=== PATIENT | male | born 1950 | race Two or more races ===

== ENCOUNTER 2017-07-28 23:05 | Emergency (ER) | payer MEDICARE, OTHER ==
[~2017-07-28] VITALS: Ht 175.3 cm; Wt 92.1 kg
--- NOTE | 2017-07-28 23:10 | NUR ---
TO BED 7 A 66 YO MALE PATIENT BB [id number] FROM HOME. "CONCERNED ABOUT MY HEADACHE & HIGH BLOOD PRESSURE." UPON ARRIVAL, PATIENT IS WEARING C COLLAR PER PATIENT HE HAD SPINE SURGERY LAST MARCH. PATIENT IS AAOX4, NAD NOTED. BREATHING EVEN AND UNLABORED. PLACED ON CARDIAC AND VS MONITORING. GOWNED. COMFORT MEASURES RENDERED.
[2017-07-28] MEDS ORDERED: OMEG300C3 PO (23:45)
[2017-07-28] MEDS ORDERED: ATOR10TA PO (23:45)
[2017-07-28] MEDS ORDERED: METO-302 PO (23:45)
[2017-07-28] MEDS ORDERED: OXYC-128 PO (23:45)
[2017-07-28] MEDS ORDERED: APIX2.5T PO (23:45)
[2017-07-28] MEDS ORDERED: GABA-532 PO (23:45)
--- NOTE | 2017-07-28 23:46 | NUR ---
PT STATES OXYCODONE 5/325 x1 TAB @20:30 WITH MINIMAL RELIEF.
[2017-07-29] MEDS ORDERED: hydrALAZINE HCL IV 20 MG VIAL IV ONE
[2017-07-29] MEDS ORDERED: MORPHINE SULFATE INJ 2 MG/ML DISP.SYRIN IV ONE
--- NOTE | 2017-07-29 | NUR ---
started a saline lock on the lac g18, blood drawn and sent to lab.
[2017-07-29 00:04] LABS: BASOPHILS % (AUTO) 0.5 % (0.0-2.0); EOSINOPHILS # (AUTO) 0.1 /CMM (0.0-0.7); EOSINOPHILS % (AUTO) 1.3 % (0.0-6.0); HEMATOCRIT 43 % (39-51); HEMOGLOBIN 14.1 g/dL (13.5-17.5); LYMPHOCYTES # (AUTO) 1.5 /CMM (0.8-4.8); LYMPHOCYTES % (AUTO) 18.4 % (20.0-44.0); MEAN CORPUSCULAR HEMOGLOBIN 31 PG (26.0-33.0); MEAN CORPUSCULAR HGB CONC 33 g/dl (31.0-36.0); MEAN CORPUSCULAR VOLUME 94 fL (80-96); MONOCYTES # (AUTO) 0.4 /CMM (0.1-1.30); MONOCYTES % (AUTO) 5.5 % (2.0-12.0); NEUTROPHILS # (AUTO) 5.9 /CMM (1.8-8.9); NEUTROPHILS % (AUTO) 74.3 % (43.0-81.0); PLATELET COUNT (AUTO) 197 /CMM (150-450); RDW COEFFICIENT OF VARIATION 18.8 (11.5-15.0); RED BLOOD CELL COUNT(AUTO) 4.53 MIL/uL (4.5-6.0)
[2017-07-29] MEDS ORDERED: hydrALAZINE HCL IV 20 MG VIAL ONE (00:04)
[2017-07-29] MEDS ORDERED: MORPHINE SULFATE INJ 10 MG/ML DISP.SYRIN ONE (00:04)
[2017-07-29 00:13] LABS: CALCIUM, SERUM 9.1 mg/dL (8.5-10.1); CARBON DIOXIDE 24 mmol/L (21-32); CHLORIDE 105 mmol/L (98-107); CREATININE 1.1 mg/dL (0.6-1.3); GLUCOSE 90 mg/dL (74-106); SODIUM SERUM 139 mmol/L (136-145); UREA NITROGEN, BLOOD 15 mg/dL (7-18)
[2017-07-29 00:19] LABS: ALANINE AMINOTRANSFERASE 29 U/L (12-78); ALBUMIN 4.3 g/dL (3.4-5.0); ALKALINE PHOSPHATASE 70 U/L (46-116); ASPARTATE AMINOTRANSFERASE 18 U/L (15-37); BILIRUBIN,DIRECT 0.2 mg/dL (0.0-0.2); TOTAL PROTEIN, SERUM 7.5 g/dL (6.4-8.2)
--- NOTE | 2017-07-29 00:20 | NUR ---
Back from radiology.
[2017-07-29 00:21] LABS: TROPONIN I < 0.017 ng/mL (0.00-0.056)
--- NOTE | 2017-07-29 00:24 | NUR ---
medicated patient as ordered by Dr Machuca.
[2017-07-29 00:58] LABS: APPEARANCE,URINE CLEAR (CLEAR); BILIRUBIN,URINE NEGATIVE (NEGATIVE); BLOOD, URINE NEGATIVE Ery/uL (NEGATIVE); COLOR,URINE YELLOW (YELLOW); KETONES,URINE NEGATIVE (NEGATIVE); LEUKOCYTE ESTERASE ,URINE NEGATIVE (NEGATIVE); NITRITE, URINE NEGATIVE (NEGATIVE); PROTEIN,URINE TRACE mg/dl (NEGATIVE); UGLUCOSE NEGATIVE (NEGATIVE); UROBILINOGEN,URINE 0.2 EU/dL (0.2)
[2017-07-29 01:08] LABS: RBC,URINE 0-2 /HPF (0-2); WBC,URINE 0-2 /HPF (0-3)
[2017-07-29 01:09] LABS: BACTERIA,URINE Rare /HPF (None Seen); SQUAMOUS EPITHELIAL CELL,UR Rare /HPF (None Seen)
--- NOTE | 2017-07-29 01:27 | NUR ---
IV removed. Catheter intact and site benign. Pressure and 4x4 applied to site. No bleeding noted. Patient discharged to home in stable condition. Written and verbal after care instructions given. Patient verbalizes understanding of instruction. Patient is ambulatory with steady gait, no further complaints.
[2017-07-29 01:28] VITALS: BP 120/70
== END 2017-07-29 01:28 | disposition home or self-care (01) ==
LOC: ER 23:07
DX: I16.0 Hypertensive urgency (principal); I10 Essential (primary) hypertension; E78.5 Hyperlipidemia, unspecified; Z86.73 Personal history of transient ischemic attack (TIA), and cerebral infarction without residual deficits; Z95.0 Presence of cardiac pacemaker; Z88.2 Allergy status to sulfonamides; Z79.01 Long term (current) use of anticoagulants
CPT/HCPCS: 36415; 70450; 80048; 80076; 81001; 84484; 85025; 93005; 96374; 96375; 99285; A4606; J0360; J2270; 81000-TC; Z7610

== ENCOUNTER 2017-08-16 05:57 | Emergency (ER) | payer MEDICARE, OTHER ==
[~2017-08-16] VITALS: Ht 172.7 cm; Wt 72.6 kg
[~2017-08-16 05:57] MED LIST: APIX2.5T PO; ATOR10TA PO; GABA-532 PO; METO-302 PO; OMEG300C3 PO; OXYC-128 PO
--- NOTE | 2017-08-16 06:00 | NUR ---
PT BIB RA TO ER BED 6, C/O HEADACHE STATING HIS B/P IS "TOO HIGH" X 12 HOURS. PT PLACED ON BROTH MIXER. PT VSS/RESP EVEN UNLABORED/NAD NOTED/SKIN WARM AND DRY/DENIES N-V-D/AOX4. AWAITING MD SORENSEN.
--- NOTE | 2017-08-16 06:15 | NUR ---
PT STATES HIS HEAD NO LONGER HURTS, RATED PAIN A 0 ON PAIN SCALE.
[2017-08-16 07:25] VITALS: BP 121/71
--- NOTE | 2017-08-16 07:25 | NUR ---
REPORT GIVEN TO PAMELA MIGUEL FOR GLENYS. PT VSS.
--- NOTE | 2017-08-16 07:29 | NUR ---
PT BACK FROM CT SCAN
== END 2017-08-16 08:57 | disposition home or self-care (01) ==
LOC: ER 06:03
DX: I10 Essential (primary) hypertension (principal); R51 Headache; E78.5 Hyperlipidemia, unspecified; Z79.01 Long term (current) use of anticoagulants; Z86.73 Personal history of transient ischemic attack (TIA), and cerebral infarction without residual deficits; Z88.2 Allergy status to sulfonamides; Z95.0 Presence of cardiac pacemaker
CPT/HCPCS: 70450; 99284; A4606; Z7610

== ENCOUNTER 2017-08-18 15:33 | Inpatient (IN) | payer MEDICARE, OTHER ==
[~2017-08-18] VITALS: Ht 182.9 cm; Wt 90.7 kg
--- NOTE | 2017-08-18 16:00 | NUR ---
PRESENTS TO ER C/O HEADACHE- PT POINTING TO BACK OF HIS HEAD, X 2 DAYS. NO N/V. STATES " I THINK MY BLOOD PRESSURE IS HIGH". A/OX 4. BREATHING EVEN AND UNLABORED. NO SOB. NO NEURO DEFICITS. VITALS STABLE. SAFETY AND COMFORT MEASURES IN PLACE. AWAITING MD ORDERS.
[2017-08-18] MEDS ORDERED: METOCLOPRAMIDE HCL 10 MG/2 ML VIAL IV ONE (16:30)
[2017-08-18] MEDS ORDERED: ACETAMINOPHEN ES 500 MG TABLET PO ONE (16:30)
[2017-08-18] MEDS ORDERED: IV NS 0.9% 1,000 ML BAG IV ONE (16:30)
[2017-08-18] MEDS ORDERED: KETOROLAC TROMETHAMINE INJ 30 MG/ML VIAL IV ONE (16:30)
--- NOTE | 2017-08-18 16:30 | NUR ---
NEW IV STARTED ON LAC, 18 G. BLOOD DRAWN AND SENT TO LAB.
[2017-08-18] MEDS ORDERED: METOCLOPRAMIDE HCL 10 MG/2 ML VIAL ONE (16:35)
[2017-08-18] MEDS ORDERED: KETOROLAC TROMETHAMINE INJ 30 MG/ML VIAL ONE (16:35)
[2017-08-18] MEDS ORDERED: ACETAMINOPHEN ES 500 MG TABLET ONE (16:35)
--- NOTE | 2017-08-18 16:45 | NUR ---
PATIENT MEDICATED PER MD ORDERS.
--- NOTE | 2017-08-18 16:56 | NUR ---
PATIENT TAKEN TO CT VIA STRETCHER.
[2017-08-18] MEDS ORDERED: ATOR40TA PO (16:57)
[2017-08-18] MEDS ORDERED: GABA-534 PO (16:57)
[2017-08-18] MEDS ORDERED: OMEG-72 PO (16:57)
[2017-08-18] MEDS ORDERED: APIX5TAB PO (16:57)
[2017-08-18] MEDS ORDERED: FLEC100T2 PO (16:57)
[2017-08-18 17:06] LABS: BASOPHILS % (AUTO) 0.4 % (0.0-2.0); EOSINOPHILS # (AUTO) 0.1 /CMM (0.0-0.7); EOSINOPHILS % (AUTO) 1.3 % (0.0-6.0); HEMATOCRIT 43 % (39-51); HEMOGLOBIN 14.2 g/dL (13.5-17.5); LYMPHOCYTES # (AUTO) 1.2 /CMM (0.8-4.8); LYMPHOCYTES % (AUTO) 15.4 % (20.0-44.0); MEAN CORPUSCULAR HEMOGLOBIN 31 PG (26.0-33.0); MEAN CORPUSCULAR HGB CONC 33 g/dl (31.0-36.0); MEAN CORPUSCULAR VOLUME 93 fL (80-96); MONOCYTES # (AUTO) 0.5 /CMM (0.1-1.30); MONOCYTES % (AUTO) 6.7 % (2.0-12.0); NEUTROPHILS % (AUTO) 76.2 % (43.0-81.0); PLATELET COUNT (AUTO) 214 /CMM (150-450); RDW COEFFICIENT OF VARIATION 19.9 (11.5-15.0); RED BLOOD CELL COUNT(AUTO) 4.61 MIL/uL (4.5-6.0); WHITE BLOOD COUNT (AUTO) 7.8 K/uL (4.3-11.0)
--- NOTE | 2017-08-18 17:08 | NUR ---
PATIENT RETURNED FROM CT IN STABLE CONDITION.
[2017-08-18 17:11] LABS: CALCIUM, SERUM 9.4 mg/dL (8.5-10.1); CARBON DIOXIDE 27 mmol/L (21-32); CHLORIDE 107 mmol/L (98-107); GLUCOSE 101 mg/dL (74-106); SODIUM SERUM 140 mmol/L (136-145); UREA NITROGEN, BLOOD 18 mg/dL (7-18)
[2017-08-18 17:13] LABS: INR 1.08 (0.87-1.13); PROTHROMBIN TIME 11.2 SECS (9.5-12.7)
[2017-08-18 17:21] LABS: ALANINE AMINOTRANSFERASE 33 U/L (12-78); ALBUMIN 4.2 g/dL (3.4-5.0); ALKALINE PHOSPHATASE 69 U/L (46-116); ASPARTATE AMINOTRANSFERASE 17 U/L (15-37); BILIRUBIN,DIRECT 0.2 mg/dL (0.0-0.2); BILIRUBIN,TOTAL 1.5 mg/dL (0.2-1.0); TOTAL PROTEIN, SERUM 7.4 g/dL (6.4-8.2)
[2017-08-18 17:27] LABS: TROPONIN I < 0.017 ng/mL (0.00-0.056)
--- NOTE | 2017-08-18 17:39 | NUR ---
PAGED DR VILLAVICENCIO
--- NOTE | 2017-08-18 17:51 | NUR ---
PATIENT ASSIGNED TO TELE 310-1
--- NOTE | 2017-08-18 17:59 | NUR ---
REPORT GIVEN TO LYNN SANTIAGO FOR GLENYS UPON ADMISSION.
[2017-08-18] MEDS ORDERED: HYDROCODONE/APAP 5/325MG 1 EACH TABLET ONE (18:28)
[2017-08-18] MEDS ORDERED: HYDROCODONE/APAP 5/325MG 1 EACH TABLET PO ONE (18:30)
--- NOTE | 2017-08-18 19:02 | NUR ---
RECEIVED REPORT FROM PAMELA HOU PT APPEARS COMFORTABLE.
--- NOTE | 2017-08-18 19:03 | NUR ---
DR. FRANCO AT BEDSIDE FOR EVAL.
--- NOTE | 2017-08-18 19:35 | NUR ---
PT TRANSFERRED TO TELE BED 310 PER ACLS PROTOCOL.
[2017-08-18 20:00] VITALS: BP 121/55
[2017-08-18] MEDS ORDERED: ONDANSETRON HCL/PF 4 MG/2 ML VIAL IVP PRN (20:00)
[2017-08-18] MEDS ORDERED: HYDROMORPHONE 1 MG/1 ML DISP.SYRIN IV PRN (20:00)
[2017-08-18] MEDS ORDERED: ACETAMINOPHEN 325 MG TABLET PO PRN (20:00)
[2017-08-18] MEDS ORDERED: Z GUARD REMEDY 2 OZ OINT TP PRN (20:00)
[2017-08-18] MEDS ORDERED: MAG HYDROX/AL HYDROX/SIMETH 30 ML UDC PO PRN (20:00)
[2017-08-18] MEDS ORDERED: MAGNESIUM HYDROXIDE 30 ML UDC PO PRN (20:00)
[2017-08-18] MEDS ORDERED: ZOLPIDEM TARTRATE 5 MG TABLET PO PRN (20:00)
--- NOTE | 2017-08-18 20:30 | NUR ---
RN OPENING NOTES RECEIVED PATIENT FROM ER IN STABLE CONDITION, ALERT AND ORIENTED X4. VS STABLE, AMBULATORY. RESPIRATIONS EVEN AND UNLABORED. NO SOB NOTED. PATIENT C/O HEADACHE 03/30. TELE MONITOR IS IN PLACE, SINUS RHYTHM 64 BPM. BS X4. IV ACCESS ON LEFT AC #18 PATENT AND INTACT, FLUSHING WELL WITH NS. AWATING FOR MD ORDERS. BED IN LOW AND LOCKED POSITION. SIDE RAILSX2. CALL LIGHT WITHIN EASY REACH. WILL CONTINUE TO MONITOR AND ASSESS DURING THE SHIFT.
[2017-08-18 21:00] VITALS: BP 121/55
[2017-08-18] MEDS: oxyCODONE/APAP (5/325 MG) 1 UDTAB TABLET PO PRN (21:03)
--- NOTE | 2017-08-18 21:05 | NUR ---
RN NOTES PATIENT C/O PAIN 03/30. ADMINISTERED PERCOCET 5/325 MG. CONTINUE TO MONITOR.
[2017-08-18] MEDS: IV NS 0.9% 1,000 ML IV PRN (21:06)
[2017-08-18] MEDS: ATORVASTATIN 40 MG TABLET PO SCH (21:14)
[2017-08-19] VITALS: BP 132/71
[2017-08-19 04:00] VITALS: BP_SYST 120; BP_SYST 131; BP_SYST 158; BP_DIAS 62; BP_DIAS 70; BP_DIAS 74
--- NOTE | 2017-08-19 06:52 | NUR ---
RN CLOSING NOTES PATIENT IS SLEEPING IN BED, EASY TO AROUSE. VS STABLE. RESPIRATIONS EVEN AND UNLABORED. NO SOB NOTED. TELE MONITOR IS IN PLACE, SINUS RHYTHM 65 BPM. IV ACCESS ON LEFT AC #18 PATENT AND INTACT, INFUSING NS AT 75 ML/HR. NO REDNESS OR INFILTRATION NOTED. ALL MEDICATIONS GIVEN PER MD ORDER. BED IN LOW AND LOCKED POSITION. SIDE RAILSX2. CALL LIGHT WITHIN EASY REACH. WILL ENDORSE TO RN DAY SHIFT FOR CONTINUITY OF CARE.
[2017-08-19 07:09] LABS: BASOPHILS # (AUTO) 0.1 /CMM (0.0-0.2); BASOPHILS % (AUTO) 0.7 % (0.0-2.0); EOSINOPHILS # (AUTO) 0.1 /CMM (0.0-0.7); EOSINOPHILS % (AUTO) 1.6 % (0.0-6.0); HEMATOCRIT 41 % (39-51); HEMOGLOBIN 13.4 g/dL (13.5-17.5); LYMPHOCYTES # (AUTO) 1.7 /CMM (0.8-4.8); LYMPHOCYTES % (AUTO) 23.9 % (20.0-44.0); MEAN CORPUSCULAR HEMOGLOBIN 31 PG (26.0-33.0); MEAN CORPUSCULAR HGB CONC 33 g/dl (31.0-36.0); MEAN CORPUSCULAR VOLUME 95 fL (80-96); MONOCYTES # (AUTO) 0.5 /CMM (0.1-1.30); MONOCYTES % (AUTO) 6.4 % (2.0-12.0); NEUTROPHILS # (AUTO) 4.9 /CMM (1.8-8.9); NEUTROPHILS % (AUTO) 67.4 % (43.0-81.0); PLATELET COUNT (AUTO) 183 /CMM (150-450); RDW COEFFICIENT OF VARIATION 19.3 (11.5-15.0); RED BLOOD CELL COUNT(AUTO) 4.27 MIL/uL (4.5-6.0); WHITE BLOOD COUNT (AUTO) 7.3 K/uL (4.3-11.0)
[2017-08-19 07:24] LABS: ALBUMIN 3.5 g/dL (3.4-5.0); BILIRUBIN,TOTAL 1.5 mg/dL (0.2-1.0); CALCIUM, SERUM 8.6 mg/dL (8.5-10.1); MAGNESIUM 1.9 mg/dL (1.8-2.4); POTASSIUM 3.9 mmol/L (3.5-5.1); TOTAL PROTEIN, SERUM 6.3 g/dL (6.4-8.2)
[2017-08-19 08:00] VITALS: BP 126/70
--- NOTE | 2017-08-19 08:00 | NUR ---
MS RN AM NOTES PATIENT IS EASY TO AROUSE. RESPIRATIONS EVEN AND UNLABORED. NO SOB NOTED. TELE MONITOR IS IN PLACE WITH SINUS RHYTHM 70 BPM. IV ACCESS ON LEFT AC #18 PATENT AND INTACT, INFUSING NS AT 75 ML/HR. NO REDNESS OR INFILTRATION NOTED. ATE 75%BREAKFAST.WITH BRP.ALL MEDICATIONS GIVEN PER MD ORDER. BED IN LOW AND LOCKED POSITION. SIDE RAILSX2. CALL LIGHT WITHIN EASY REACH.
[2017-08-19] MEDS ORDERED: Medication Not On Formulary EA (Omega-3 Acid Ethyl Esters 1 GM) PO SCH (09:00)
[2017-08-19] MEDS: FLECAINIDE ACETATE (100 MG) 100 MG TABLET PO SCH ×2 (09:27→17:50)
[2017-08-19] MEDS: METOPROLOL SUCCINATE 25 MG TAB.SR.24H PO SCH (09:27)
[2017-08-19] MEDS: GABAPENTIN 300 MG CAPSULE PO SCH ×3 (09:27→17:50)
[2017-08-19] MEDS: APIXABAN 5 MG TABLET PO SCH ×2 (09:27→17:51)
[2017-08-19] MEDS: IV NS 0.9% 1,000 ML IV PRN (10:44)
--- NOTE | 2017-08-19 11:00 | NUR ---
PT IS ALERT AND ORIENTED AND STROKE TEACHING AND PACKET GIVEN.PT AMBULATES AD LIZBET WITH BRP WITH SLOW,STEADY GAIT.NO FACIAL DROOPING,NO ARM WEAKNESS,SPEECH IS CLEAR.FOR PT,OT AND ST SORENSEN.
[2017-08-19] MEDS ORDERED: IOHEXOL-300 100 ML VIAL IV ONE (11:49)
[2017-08-19] MEDS ORDERED: IV NS 0.9% 250 ML IV ONE (11:49)
[2017-08-19 16:00] VITALS: BP 131/78
--- NOTE | 2017-08-19 19:30 | NUR ---
AUTO PARTS DELIVERY DRIVER/NOTES RECEIVED PT IN STABLE CONDITION. RESTING IN BED. AA&OX4. RA. NSR. L AC IV #18G WITH NS @ 75ML/HR INFUSING WELL, SITE CDI. C/O R SHOULDER PRESSURE PAIN, LEVEL 5/10. DECLINE TO HAVE PAIN MEDICATION AT THIS TIME. ALSO C/O OF GENERALIZED WEAKNESS. NO FACIAL DROOP, STRONG HAND CLERICAL COORDINATOR ANDERS. AND NO WEAKNESS TO LOWER EXTREMITY. NO C/O FONTENOT, N/V. FEELS DIZZY ONLY WHEN GETTING UP. REFUSED BED ALARM. MADE AWARE OF PLAN OF CARE AND TO USE CALL TORO ESPECIALLY WHEN GETTING OOB AND VERBALIZE UNDERSTANDING. BED AT LOWEST POSITION, BED LOCKED, SIDE RAILS X 3 UP, ROOM NEAR NURSING STATION. SIDE TABLE, CALL TORO AND URINAL WITHIN REACH. WILL CONTINUE TO MONITOR.
[2017-08-19 20:00] VITALS: BP_SYST 107; BP_DIAS 57; BP_DIAS 72
[2017-08-19] MEDS: ATORVASTATIN 40 MG TABLET PO SCH (21:35)
[2017-08-20] VITALS: BP_SYST 135; BP_SYST 140; BP_SYST 142; BP_DIAS 77; BP_DIAS 80
[2017-08-20 04:00] VITALS: BP 131/70
[2017-08-20 06:42] LABS: BASOPHILS % (AUTO) 0.5 % (0.0-2.0); EOSINOPHILS # (AUTO) 0.1 /CMM (0.0-0.7); EOSINOPHILS % (AUTO) 1.4 % (0.0-6.0); HEMATOCRIT 42 % (39-51); HEMOGLOBIN 13.6 g/dL (13.5-17.5); LYMPHOCYTES # (AUTO) 1.5 /CMM (0.8-4.8); LYMPHOCYTES % (AUTO) 18.4 % (20.0-44.0); MEAN CORPUSCULAR HEMOGLOBIN 31 PG (26.0-33.0); MEAN CORPUSCULAR HGB CONC 33 g/dl (31.0-36.0); MEAN CORPUSCULAR VOLUME 95 fL (80-96); MONOCYTES # (AUTO) 0.4 /CMM (0.1-1.30); MONOCYTES % (AUTO) 5.3 % (2.0-12.0); NEUTROPHILS # (AUTO) 6.1 /CMM (1.8-8.9); NEUTROPHILS % (AUTO) 74.4 % (43.0-81.0); PLATELET COUNT (AUTO) 189 /CMM (150-450); RED BLOOD CELL COUNT(AUTO) 4.38 MIL/uL (4.5-6.0); WHITE BLOOD COUNT (AUTO) 8.3 K/uL (4.3-11.0)
--- NOTE | 2017-08-20 07:00 | NUR ---
TELE/RN NOTES NO SIGNIFICANT CHANGES. STABLE. OX4. NSR. NO DISTRESS NOTED. INTERMITTENTLY SLEPT LAST NIGHT WITH NO COMPLAINTS. VOIDING WELL. ALL NEEDS MET. BED AT LOWEST POSITION AND LOCKED. SR X3 UP, BED ALARM ON. SIDE TABLE AND CALL TORO WITHIN REACH. WILL ENDORSE TO AM SHIFT FOR CONTINUITY OF CARE.
[2017-08-20] MEDS: IV NS 0.9% 1,000 ML IV PRN (07:03)
[2017-08-20 07:10] LABS: ALBUMIN 3.7 g/dL (3.4-5.0); BILIRUBIN,TOTAL 1.4 mg/dL (0.2-1.0); CALCIUM, SERUM 8.6 mg/dL (8.5-10.1); CREATININE 0.9 mg/dL (0.6-1.3); POTASSIUM 3.9 mmol/L (3.5-5.1); TOTAL PROTEIN, SERUM 6.6 g/dL (6.4-8.2)
[2017-08-20 08:00] VITALS: BP 123/71
--- NOTE | 2017-08-20 08:00 | NUR ---
LAND MEASURER AM NOTES PATIENT ALERT AND AWAKE. RESPIRATIONS EVEN AND UNLABORED. NO SOB NOTED. TELE MONITOR IS IN PLACE WITH SINUS RHYTHM 70 BPM. IV ACCESS ON LEFT AC #18 PATENT AND INTACT, INFUSING NS AT 75 ML/HR. NO REDNESS OR INFILTRATION NOTED. ATE 75%BREAKFAST.WITH BRP.ALL MEDICATIONS GIVEN PER MD ORDER. BED IN LOW AND LOCKED POSITION. SIDE RAILSX2. CALL LIGHT WITHIN EASY REACH.
[2017-08-20] MEDS: GABAPENTIN 300 MG CAPSULE PO SCH ×2 (08:53→12:28)
[2017-08-20] MEDS: FLECAINIDE ACETATE (100 MG) 100 MG TABLET PO SCH (08:53)
[2017-08-20 08:54] VITALS: BP 123/71
[2017-08-20] MEDS: METOPROLOL SUCCINATE 25 MG TAB.SR.24H PO SCH (08:54)
[2017-08-20] MEDS: APIXABAN 5 MG TABLET PO SCH (08:56)
[2017-08-20] MEDS: oxyCODONE/APAP (5/325 MG) 1 UDTAB TABLET PO PRN (10:40)
--- NOTE | 2017-08-20 15:45 | NUR ---
DISCHARGE INSTRUCTIONS,MED RECONCILIATION,PRESCRIPTIONS GIVEN TO THE PT.DISCHARGED PT HOME VIA TAXI VOUCHER WITH STABLE V/S.DENIES PAIN OR DISTRESS.
== END 2017-08-20 15:45 | disposition home or self-care (01) | DRG 305 ==
LOC: ER 15:35 → TELE 19:09 → MED 08-20 07:53
PROVIDERS: ADMIT Family Medicine; ATTEND Family Medicine
DX: I10 Essential (primary) hypertension (principal); G93.89 Other specified disorders of brain; I48.91 Unspecified atrial fibrillation; R17 Unspecified jaundice; R51 Headache; E78.5 Hyperlipidemia, unspecified; F17.210 Nicotine dependence, cigarettes, uncomplicated; E80.6 Other disorders of bilirubin metabolism; Z86.73 Personal history of transient ischemic attack (TIA), and cerebral infarction without residual deficits; Z96.641 Presence of right artificial hip joint; Z79.899 Other long term (current) drug therapy; Z79.01 Long term (current) use of anticoagulants; Z95.0 Presence of cardiac pacemaker; Z88.2 Allergy status to sulfonamides; R53.1 Weakness; R04.0 Epistaxis; G89.29 Other chronic pain; I67.2 Cerebral atherosclerosis
CPT/HCPCS: 36415; 70450-TC; 70491-TC; 80048-TC; 80053-TC; 80061-TC; 80076-TC; 83735-TC; 84100-TC; 84484-TC; 85025-TC; 85730-TC; 87081-TC; A4606; J1885; J2765; J7030; J7050; Q9967; Z7610

== ENCOUNTER 2017-09-04 06:33 | Emergency (ER) | payer MEDICARE, OTHER ==
[~2017-09-04] VITALS: Ht 175.3 cm; Wt 93.4 kg
[~2017-09-04 06:33] MED LIST changes: -APIX2.5T PO; +APIX5TAB PO; -ATOR10TA PO; +ATOR40TA PO; +FLEC100T2 PO; -GABA-532 PO; +GABA-534 PO; +OMEG-72 PO; -OMEG300C3 PO
--- NOTE | 2017-09-04 06:35 | NUR ---
TO BED 4 BIB PARAMEDICS C/O CHEST PAIN X1 DAY, WORSE UPON PALPATION. PT AAOX4 NO ACUTE DISTRESS NOTED, RESP EVEN AND UNLABORED. PLACE PT ON CARDIAC MONITORING, CONTINUOUS POX. PENDING ER MD SORENSEN.
[2017-09-04] MEDS ORDERED: NITROGLYCERIN 0.4 MG/TAB BOTTLE SL ONE (07:00)
--- NOTE | 2017-09-04 07:07 | NUR ---
BLOOD DRAWN BY ASSOCIATE DIRECTOR OF DEVELOPMENT.
[2017-09-04] MEDS ORDERED: NITROGLYCERIN 0.4 MG/TAB BOTTLE ONE (07:08)
[2017-09-04 07:18] LABS: BASOPHILS % (AUTO) 0.6 % (0.0-2.0); EOSINOPHILS # (AUTO) 0.1 /CMM (0.0-0.7); EOSINOPHILS % (AUTO) 1.7 % (0.0-6.0); HEMATOCRIT 38 % (39-51); HEMOGLOBIN 12.8 g/dL (13.5-17.5); LYMPHOCYTES # (AUTO) 1.5 /CMM (0.8-4.8); LYMPHOCYTES % (AUTO) 20.5 % (20.0-44.0); MEAN CORPUSCULAR HEMOGLOBIN 31 PG (26.0-33.0); MEAN CORPUSCULAR HGB CONC 34 g/dl (31.0-36.0); MEAN CORPUSCULAR VOLUME 93 fL (80-96); MONOCYTES # (AUTO) 0.4 /CMM (0.1-1.30); NEUTROPHILS % (AUTO) 71.2 % (43.0-81.0); PLATELET COUNT (AUTO) 191 /CMM (150-450); RDW COEFFICIENT OF VARIATION 18.5 (11.5-15.0); WHITE BLOOD COUNT (AUTO) 7.1 K/uL (4.3-11.0)
[2017-09-04 07:28] LABS: CARBON DIOXIDE 28 mmol/L (21-32); CHLORIDE 108 mmol/L (98-107); CREATININE 1.2 mg/dL (0.6-1.3); GLUCOSE 132 mg/dL (74-106); POTASSIUM 3.7 mmol/L (3.5-5.1); SODIUM SERUM 144 mmol/L (136-145); UREA NITROGEN, BLOOD 15 mg/dL (7-18)
[2017-09-04 07:35] LABS: INR 1.1 (0.87-1.13); PROTHROMBIN TIME 11.4 SECS (9.5-12.7)
[2017-09-04 07:36] LABS: TROPONIN I < 0.017 ng/mL (0.00-0.056)
--- NOTE | 2017-09-04 07:40 | NUR ---
XRAY IN PROGRESS AT BS.
[2017-09-04 07:50] VITALS: BP 124/65
--- NOTE | 2017-09-04 08:00 | NUR ---
IV removed. Catheter intact and site benign. Pressure and 4x4 applied to site. No bleeding noted.Patient discharged to home in stable condition. Written and verbal after care instructions given. Patient verbalizes understanding of instruction.
== END 2017-09-04 08:06 | disposition home or self-care (01) ==
LOC: ER 06:34
DX: R07.9 Chest pain, unspecified (principal); F41.9 Anxiety disorder, unspecified; I49.9 Cardiac arrhythmia, unspecified; I10 Essential (primary) hypertension; Z88.2 Allergy status to sulfonamides; Z86.73 Personal history of transient ischemic attack (TIA), and cerebral infarction without residual deficits; Z79.01 Long term (current) use of anticoagulants
CPT/HCPCS: 36415; 71010; 80048; 84484; 85025; 85730; 93005; 99285; A4606; Z7610

== ENCOUNTER 2017-11-20 04:40 | Emergency (ER) | payer MEDICARE, OTHER ==
[~2017-11-20] VITALS: Ht 172.7 cm; Wt 77.1 kg
[~2017-11-20 04:40] MED LIST changes: -METO-302 PO; +METO-356 PO
--- NOTE | 2017-11-20 04:42 | NUR ---
PT WADE FROM HOME TO ER BED . PT [id number] WOKE UP 1 HOUR AGO C/O SOB AND CHEST PALPITATION. HX OF ARRYTHMIA. GOWNED AND PLACED ON MONITOR. SATTING 98% ON RA.DENIES ANY CHEST PAIN AT THIS TIME. AWAITING MD SORENSEN.
--- NOTE | 2017-11-20 04:51 | NUR ---
DR FRENCH AT BEDSIDE FOR EVAL.
--- NOTE | 2017-11-20 04:59 | NUR ---
RESIDENCE DIRECTOR AT BEDSIDE FOR BLOOD DRAW.
--- NOTE | 2017-11-20 05:04 | NUR ---
RADIOLOGY AT BEDSIDE FOR CHEST XRAY.
[2017-11-20 05:24] LABS: APPEARANCE,URINE CLEAR (CLEAR); BILIRUBIN,URINE NEGATIVE (NEGATIVE); BLOOD, URINE NEGATIVE Ery/uL (NEGATIVE); COLOR,URINE YELLOW (YELLOW); KETONES,URINE NEGATIVE (NEGATIVE); LEUKOCYTE ESTERASE ,URINE NEGATIVE (NEGATIVE); NITRITE, URINE NEGATIVE (NEGATIVE); PROTEIN,URINE 2+ mg/dl (NEGATIVE); UGLUCOSE NEGATIVE (NEGATIVE); UROBILINOGEN,URINE 0.2 EU/dL (0.2)
[2017-11-20 05:24] LABS: BASOPHILS % (AUTO) 0.5 % (0.0-2.0); EOSINOPHILS # (AUTO) 0.1 /CMM (0.0-0.7); EOSINOPHILS % (AUTO) 1.4 % (0.0-6.0); HEMATOCRIT 45 % (39-51); HEMOGLOBIN 15.1 g/dL (13.5-17.5); LYMPHOCYTES # (AUTO) 1.6 /CMM (0.8-4.8); LYMPHOCYTES % (AUTO) 21.3 % (20.0-44.0); MEAN CORPUSCULAR HEMOGLOBIN 32 PG (26.0-33.0); MEAN CORPUSCULAR HGB CONC 34 g/dl (31.0-36.0); MEAN CORPUSCULAR VOLUME 94 fL (80-96); MONOCYTES # (AUTO) 0.5 /CMM (0.1-1.30); MONOCYTES % (AUTO) 6.9 % (2.0-12.0); NEUTROPHILS # (AUTO) 5.3 /CMM (1.8-8.9); NEUTROPHILS % (AUTO) 69.9 % (43.0-81.0); PLATELET COUNT (AUTO) 187 /CMM (150-450); RDW COEFFICIENT OF VARIATION 19.8 (11.5-15.0); RED BLOOD CELL COUNT(AUTO) 4.78 MIL/uL (4.5-6.0); WHITE BLOOD COUNT (AUTO) 7.6 K/uL (4.3-11.0)
[2017-11-20 05:27] LABS: BACTERIA,URINE None seen /HPF (None Seen); RBC,URINE NONE SEEN /HPF (0-2); SQUAMOUS EPITHELIAL CELL,UR Few /HPF (None Seen); WBC,URINE 0-2 /HPF (0-3)
[2017-11-20 05:28] LABS: CARBON DIOXIDE 24 mmol/L (21-32); CHLORIDE 106 mmol/L (98-107); CREATININE 0.9 mg/dL (0.6-1.3); GLUCOSE 104 mg/dL (74-106); SODIUM SERUM 142 mmol/L (136-145); UREA NITROGEN, BLOOD 17 mg/dL (7-18)
[2017-11-20 05:36] LABS: TROPONIN I < 0.017 ng/mL (0.00-0.056)
[2017-11-20 05:40] LABS: INR 1.03 (0.87-1.13)
[2017-11-20 05:42] LABS: ALANINE AMINOTRANSFERASE 32 U/L (12-78); ALBUMIN 4.1 g/dL (3.4-5.0); ALKALINE PHOSPHATASE 72 U/L (46-116); ASPARTATE AMINOTRANSFERASE 23 U/L (15-37); B-TYPE NATRIURETIC PEPTIDE 350 PG/ML (0-125); BILIRUBIN,DIRECT 0.2 mg/dL (0.0-0.2); BILIRUBIN,TOTAL 0.9 mg/dL (0.2-1.0); TOTAL PROTEIN, SERUM 7.6 g/dL (6.4-8.2)
[2017-11-20] MEDS ORDERED: FUROSEMIDE 40 MG/4 ML VIAL IV ONE (06:00)
[2017-11-20] MEDS ORDERED: FUROSEMIDE 40 MG/4 ML VIAL ONE (06:01)
[2017-11-20 06:12] VITALS: BP 138/84
--- NOTE | 2017-11-20 06:12 | NUR ---
Patient discharged to home in stable condition. Written and verbal after care instructions given. Patient verbalizes understanding of instruction.IV removed. Catheter intact and site benign. Pressure and 4x4 applied to site. No bleeding noted.
== END 2017-11-20 06:13 | disposition home or self-care (01) ==
LOC: ER 04:42
DX: I11.0 Hypertensive heart disease with heart failure (principal); I50.9 Heart failure, unspecified; Z79.01 Long term (current) use of anticoagulants; Z86.73 Personal history of transient ischemic attack (TIA), and cerebral infarction without residual deficits; Z88.2 Allergy status to sulfonamides; Z95.0 Presence of cardiac pacemaker
CPT/HCPCS: 36415; 71045; 80048; 80076; 81001; 83605; 83880; 84484; 85025; 85730; 87040 ×2; 87086; 93005; 96374; 99285; A4606; J1940; 81000-TC; Z7610

== ENCOUNTER 2017-11-29 18:57 | Emergency (ER) | payer MEDICARE, OTHER ==
[~2017-11-29] VITALS: Ht 167.6 cm; Wt 74.8 kg
--- NOTE | 2017-11-29 19:30 | NUR ---
67 YO MALE BB SELF. PATIENT IS ALERT AND ORIENTED X 3, C/O PALPITATIONS/ FAST HEART RATE. PATIENT DENIES CP/ SOB/ N/V. PATIENT AMBULATED TO ER BED, SKIN WARM AND DRY, RESP EVEN AND UNLABORED. PATIENT GOWNED,PLACED ON CARIDAC MONITOR. 18G RIGHT AC IV STARTED, BLOOD SAMPLE OBTAINED AND SENT TO LAB. WILL CONTINUE TO MONITOR
--- NOTE | 2017-11-29 19:37 | NUR ---
BRENNEN GALINDO AT BED SIDE
[2017-11-29] MEDS ORDERED: DIGOXIN INJ 0.5 MG/2 ML AMPUL ONE (19:45)
[2017-11-29] MEDS ORDERED: ASPIRIN 81 MG TAB.CHEW ONE (19:45)
[2017-11-29] MEDS ORDERED: DILTIAZEM HCL 25 MG IV ONE (19:46)
[2017-11-29 19:49] LABS: BASOPHILS # (AUTO) 0.1 /CMM (0.0-0.2); BASOPHILS % (AUTO) 1.6 % (0.0-2.0); EOSINOPHILS # (AUTO) 0.1 /CMM (0.0-0.7); EOSINOPHILS % (AUTO) 0.9 % (0.0-6.0); HEMATOCRIT 47 % (39-51); HEMOGLOBIN 16.5 g/dL (13.5-17.5); LYMPHOCYTES # (AUTO) 1.7 /CMM (0.8-4.8); LYMPHOCYTES % (AUTO) 19.8 % (20.0-44.0); MEAN CORPUSCULAR HEMOGLOBIN 32 PG (26.0-33.0); MEAN CORPUSCULAR HGB CONC 35 g/dl (31.0-36.0); MEAN CORPUSCULAR VOLUME 92 fL (80-96); MONOCYTES # (AUTO) 0.6 /CMM (0.1-1.30); MONOCYTES % (AUTO) 6.8 % (2.0-12.0); NEUTROPHILS # (AUTO) 5.9 /CMM (1.8-8.9); NEUTROPHILS % (AUTO) 70.9 % (43.0-81.0); PLATELET COUNT (AUTO) 221 /CMM (150-450); RDW COEFFICIENT OF VARIATION 18.9 (11.5-15.0); RED BLOOD CELL COUNT(AUTO) 5.14 MIL/uL (4.5-6.0); WHITE BLOOD COUNT (AUTO) 8.4 K/uL (4.3-11.0)
--- NOTE | 2017-11-29 19:57 | NUR ---
MEDICATED PT ORDERED
[2017-11-29] MEDS ORDERED: DILTIAZEM HCL 25 MG IV IV ONE (20:00)
[2017-11-29] MEDS ORDERED: IV NS 0.9% 500 ML BAG IV ONE (20:00)
[2017-11-29] MEDS ORDERED: DIGOXIN INJ 0.5 MG/2 ML AMPUL IV ONE (20:00)
[2017-11-29] MEDS ORDERED: ASPIRIN 81 MG TAB.CHEW PO ONE (20:00)
--- NOTE | 2017-11-29 20:03 | NUR ---
NOTED EKG CHANGES IN ON 3 LEAD. PRINTED STRIP AND UPDATED MD RAY. PER MD RAY, CONTINUE TO MONITOR PATIENT. STIP PRINTED AND PUT IN PT CHART
[2017-11-29 20:04] LABS: CALCIUM, SERUM 9.1 mg/dL (8.5-10.1); CARBON DIOXIDE 26 mmol/L (21-32); CHLORIDE 106 mmol/L (98-107); GLUCOSE 99 mg/dL (74-106); POTASSIUM 4.3 mmol/L (3.5-5.1); SODIUM SERUM 141 mmol/L (136-145); UREA NITROGEN, BLOOD 14 mg/dL (7-18)
[2017-11-29] MEDS ORDERED: PREG25CA PO (20:05)
[2017-11-29] MEDS ORDERED: DIGO125T PO (20:05)
[2017-11-29 20:08] LABS: INR 1.02 (0.85-1.15)
[2017-11-29 20:10] LABS: ALANINE AMINOTRANSFERASE 34 U/L (12-78); ALBUMIN 4.2 g/dL (3.4-5.0); ALKALINE PHOSPHATASE 70 U/L (46-116); ASPARTATE AMINOTRANSFERASE 21 U/L (15-37); BILIRUBIN,DIRECT 0.2 mg/dL (0.0-0.2); BILIRUBIN,TOTAL 1.3 mg/dL (0.2-1.0); TOTAL PROTEIN, SERUM 7.9 g/dL (6.4-8.2)
[2017-11-29 20:12] LABS: TROPONIN I < 0.017 ng/mL (0.00-0.056)
--- NOTE | 2017-11-29 20:33 | NUR ---
PATIENT IS RESTING IN ER BED, NO DISTRESS NOTED, SKIN WARM AND DRY, RESP EVEN AND UNLABORED. PATIENT DENIES ANY CHEST PAIN, SOB, N/V OR ANY OTHER MEDICAL COMPLAINTS AT THIS TIME. PATIENT IS ON SUEDE CLEANER, WILL CONTINUE TO MONITOR
--- NOTE | 2017-11-29 21:03 | NUR ---
CALLED [employer] ([employer]) FOR PACEMAKER INTERROGATION - THEY WILL SEND OUT A PAGE AND CALL BACK
--- NOTE | 2017-11-29 22:31 | NUR ---
RECEIVED CALL FROM [employer] ON-CALL TECH; WILL COME SEE PT
[2017-11-29 23:03] VITALS: BP 108/79
--- NOTE | 2017-11-29 23:10 | NUR ---
Patient discharged to home in stable condition. Written and verbal after care instructions given. Patient verbalizes understanding of instruction.IV removed. Catheter intact and site benign. Pressure and 4x4 applied to site. No bleeding noted. PT ambulatory with a steady gait
[2017-11-30] MEDS ORDERED: NITROGLYCERIN PACKET 1 GM PACKET ONE (07:28)
[2017-11-30] MEDS ORDERED: FUROSEMIDE 40 MG/4 ML VIAL ONE (07:28)
== END 2017-11-29 23:09 | disposition home or self-care (01) ==
LOC: ER 19:03
DX: R00.2 Palpitations (principal); I10 Essential (primary) hypertension; I48.91 Unspecified atrial fibrillation; Z86.73 Personal history of transient ischemic attack (TIA), and cerebral infarction without residual deficits; Z88.2 Allergy status to sulfonamides; Z60.2 Problems related to living alone; Z79.01 Long term (current) use of anticoagulants
CPT/HCPCS: 36415; 71045; 80048; 80076; 84484; 85025; 85730; 93005 ×2; 96374; 96375; 99285; A4606; J1160; J3490; J7040; J1940; Z7610

== ENCOUNTER 2017-11-30 05:51 | Inpatient (IN) | payer MEDICARE, OTHER ==
[~2017-11-30] VITALS: Ht 167.6 cm; Wt 74.4 kg
[~2017-11-30 05:51] MED LIST changes: +DIGO125T PO; +PREG25CA PO
--- NOTE | 2017-11-30 06:00 | NUR ---
67 yo male bb male bb self. patient is alert and oriented x 3, states hes having SOB x 1 hour. patient was evaluated here last night, was DC with instructions to go to his highway inspector in the morning. patient pace maker was evaluated by sheryl. patient was gowned, placed on executive wellness programs director. skin warm and dry, resp even and unlabored. awaiting orders from provider, will continue to monitor
--- NOTE | 2017-11-30 06:26 | NUR ---
18g right ac iv started, blood sample obtained and sent to lab
[2017-11-30 06:47] LABS: BASOPHILS % (AUTO) 0.5 % (0.0-2.0); EOSINOPHILS # (AUTO) 0.1 /CMM (0.0-0.7); EOSINOPHILS % (AUTO) 1.2 % (0.0-6.0); HEMATOCRIT 41 % (39-51); HEMOGLOBIN 13.9 g/dL (13.5-17.5); LYMPHOCYTES # (AUTO) 2.2 /CMM (0.8-4.8); LYMPHOCYTES % (AUTO) 24.5 % (20.0-44.0); MEAN CORPUSCULAR HEMOGLOBIN 32 PG (26.0-33.0); MEAN CORPUSCULAR HGB CONC 34 g/dl (31.0-36.0); MEAN CORPUSCULAR VOLUME 94 fL (80-96); MONOCYTES # (AUTO) 0.6 /CMM (0.1-1.30); MONOCYTES % (AUTO) 6.7 % (2.0-12.0); NEUTROPHILS % (AUTO) 67.1 % (43.0-81.0); PLATELET COUNT (AUTO) 205 /CMM (150-450); RDW COEFFICIENT OF VARIATION 20.1 (11.5-15.0); RED BLOOD CELL COUNT(AUTO) 4.42 MIL/uL (4.5-6.0); WHITE BLOOD COUNT (AUTO) 8.9 K/uL (4.3-11.0)
[2017-11-30 06:58] LABS: CALCIUM, SERUM 8.6 mg/dL (8.5-10.1); CARBON DIOXIDE 25 mmol/L (21-32); CHLORIDE 107 mmol/L (98-107); CREATININE 1.2 mg/dL (0.6-1.3); GLUCOSE 117 mg/dL (74-106); POTASSIUM 3.9 mmol/L (3.5-5.1); SODIUM SERUM 143 mmol/L (136-145); UREA NITROGEN, BLOOD 15 mg/dL (7-18)
--- NOTE | 2017-11-30 06:59 | NUR ---
radiology at bed side for x ray
[2017-11-30 07:04] LABS: ALANINE AMINOTRANSFERASE 34 U/L (12-78); ALBUMIN 3.7 g/dL (3.4-5.0); ALKALINE PHOSPHATASE 62 U/L (46-116); ASPARTATE AMINOTRANSFERASE 20 U/L (15-37); BILIRUBIN,DIRECT 0.2 mg/dL (0.0-0.2); TOTAL PROTEIN, SERUM 6.8 g/dL (6.4-8.2)
[2017-11-30 07:07] LABS: INR 1.1 (0.87-1.13); TROPONIN I < 0.017 ng/mL (0.00-0.056)
--- NOTE | 2017-11-30 07:15 | NUR ---
RECEIVED REPORT FOR GLENYS.
--- NOTE | 2017-11-30 07:24 | NUR ---
QUENTIN IS DR. GARCIA
[2017-11-30] MEDS ORDERED: NITROGLYCERIN PACKET 1 GM PACKET TD ONE (07:30)
[2017-11-30] MEDS ORDERED: FUROSEMIDE 40 MG/4 ML VIAL IV ONE (07:30)
--- NOTE | 2017-11-30 07:31 | NUR ---
PAGED EPIC INSPECTOR OPTICAL INSTRUMENT- DR FRANCO
--- NOTE | 2017-11-30 07:33 | NUR ---
BP 115/55, MD INFORMED, STATED TO ONLY GIVE LASIX AND HOLD NITRO PASTE.
--- NOTE | 2017-11-30 07:51 | NUR ---
CALLED [facility] [place] [facility] [place] A TELE BED
--- NOTE | 2017-11-30 08:19 | NUR ---
TELE 112.2
--- NOTE | 2017-11-30 08:43 | NUR ---
REPORT GIVEN TO KARYN SANTIAGO FOR GLENYS UPON ADMISSION.
[2017-11-30 09:00] VITALS: BP 121/86
[2017-11-30] MEDS ORDERED: MAG HYDROX/AL HYDROX/SIMETH 30 ML UDC PO PRN (09:00)
[2017-11-30] MEDS ORDERED: MAGNESIUM HYDROXIDE 30 ML UDC PO PRN (09:00)
[2017-11-30] MEDS ORDERED: ONDANSETRON HCL/PF 4 MG/2 ML VIAL IVP PRN (09:00)
[2017-11-30] MEDS ORDERED: Z GUARD REMEDY 2 OZ OINT TP PRN (09:00)
[2017-11-30] MEDS ORDERED: ZOLPIDEM TARTRATE 5 MG TABLET PO PRN (09:00)
[2017-11-30] MEDS ORDERED: ACETAMINOPHEN 325 MG TABLET PO PRN (09:00)
--- NOTE | 2017-11-30 09:00 | NUR ---
INTIAL CIRCULATION ASSISTANT NOTE REPORT RECEIVED FROM AMEYA Valdez PT A/O X4. SKIN INTACT NO C/O PAIN. PT ON TELE HR 125. WILL CONTINUE TO MONITOR CLOSELY. ALL SAFETY MEASURES IN PLACE.
[2017-11-30] MEDS ORDERED: FLECAINIDE ACETATE (100 MG) 100 MG TABLET PO SCH (10:30)
[2017-11-30] MEDS: PANTOPRAZOLE 40 MG VIAL IV SCH (10:30)
[2017-11-30] MEDS: METOPROLOL SUCCINATE 25 MG TAB.SR.24H PO SCH (10:31)
[2017-11-30 10:38] LABS: THYROID STIMULATING HORMONE 1.173 uIU/mL (0.358-3.74)
--- NOTE | 2017-11-30 11:10 | NUR ---
DOG HAIR CLIPPER NOTE CALLED DR. REYNOLDS TO CLARIFY ORDER. REPORTED PT IS IN SINUS RHYTHM HR 78. CANCELLED CARDIOVERSION FOR TOMORROW. WILL UPDATE DR. REYNOLDS OF ANY CHANGES.
[2017-11-30] MEDS: APIXABAN 5 MG TABLET PO SCH ×2 (11:43→16:19)
[2017-11-30 11:56] VITALS: BP 102/67
[2017-11-30 12:00] VITALS: BP 102/67
[2017-11-30] MEDS: DIGOXIN 0.125 MG TABLET PO SCH (13:01)
[2017-11-30 16:00] VITALS: BP 101/65
[2017-11-30] MEDS ORDERED: Medication Not On Formulary EA (Omega-3 Acid Ethyl Esters 1 GM) PO SCH (17:00)
[2017-11-30 20:00] VITALS: BP 100/61
[2017-11-30] MEDS ORDERED: IV NS 0.9% 1,000 ML IV PRN (22:00)
[2017-11-30] MEDS ORDERED: ATORVASTATIN 40 MG TABLET PO SCH (22:00)
[2017-12-01] VITALS: BP 113/72
[2017-12-01 04:00] VITALS: BP_SYST 107; BP_SYST 113; BP_DIAS 57; BP_DIAS 72
--- NOTE | 2017-12-01 06:53 | NUR ---
RN NOTE NO CHANGES DURING MY SHIFT, PATIENT RESTED WELL AT NIGHT, NO CHEST PAIN NOTED, NO PAIN OR DISCOMFORT NOTED AT THIS TIME, ALL SAFETY MEASURES TAKEN, CALL LIGHT WITHIN REACH, ALL BELONGINGS WITHIN REACH, BED IN THE LOWEST POSITION, SIDE RAILS UP X2, WILL ENDORSE TO AM SHIFT
--- NOTE | 2017-12-01 07:35 | NUR ---
RN OPENING NOTES RECEIVED PT. PT STABLE AND SLEEPING IN BED. NO S/S OF RESP DISTRESS OR SOB. NO C/O PAIN AT THIS TIME. WILL F/U WITH MD REGARDING MED RECON OF JOSEA PER PT REQUEST. IV ACCESS LOCATED ON RIGHT AC 18G CURRENTLY SL. SAFETY MEASURES IN PLACE, CALL LIGHT WITHIN REACH. WILL CONTINUE TO MONITOR.
[2017-12-01 07:56] LABS: BASOPHILS % (AUTO) 0.4 % (0.0-2.0); EOSINOPHILS # (AUTO) 0.1 /CMM (0.0-0.7); EOSINOPHILS % (AUTO) 1.6 % (0.0-6.0); HEMATOCRIT 41 % (39-51); HEMOGLOBIN 13.9 g/dL (13.5-17.5); LYMPHOCYTES # (AUTO) 2.1 /CMM (0.8-4.8); LYMPHOCYTES % (AUTO) 25.9 % (20.0-44.0); MEAN CORPUSCULAR HEMOGLOBIN 32 PG (26.0-33.0); MEAN CORPUSCULAR HGB CONC 34 g/dl (31.0-36.0); MEAN CORPUSCULAR VOLUME 95 fL (80-96); MONOCYTES # (AUTO) 0.6 /CMM (0.1-1.30); MONOCYTES % (AUTO) 7.8 % (2.0-12.0); NEUTROPHILS # (AUTO) 5.2 /CMM (1.8-8.9); NEUTROPHILS % (AUTO) 64.3 % (43.0-81.0); PLATELET COUNT (AUTO) 199 /CMM (150-450); RDW COEFFICIENT OF VARIATION 20.2 (11.5-15.0); RED BLOOD CELL COUNT(AUTO) 4.37 MIL/uL (4.5-6.0); WHITE BLOOD COUNT (AUTO) 8.1 K/uL (4.3-11.0)
[2017-12-01 08:00] VITALS: BP 120/70
[2017-12-01 08:13] LABS: ALBUMIN 3.9 g/dL (3.4-5.0); BILIRUBIN,TOTAL 1.9 mg/dL (0.2-1.0); CALCIUM, SERUM 8.5 mg/dL (8.5-10.1); CREATININE 1.1 mg/dL (0.6-1.3); MAGNESIUM 1.7 mg/dL (1.8-2.4); PHOSPHORUS 3.9 mg/dL (2.5-4.9); POTASSIUM 3.7 mmol/L (3.5-5.1); TOTAL PROTEIN, SERUM 7.1 g/dL (6.4-8.2)
[2017-12-01] MEDS: APIXABAN 5 MG TABLET PO SCH (09:00)
[2017-12-01] MEDS: METOPROLOL SUCCINATE 25 MG TAB.SR.24H PO SCH (09:00)
[2017-12-01] MEDS: PANTOPRAZOLE 40 MG VIAL IV SCH (09:02)
[2017-12-01] MEDS: Magnesium 1GM/D5W 100ML PREMIX 100 ML IV SCH ×2 (11:12→11:37)
[2017-12-01 12:00] VITALS: BP 120/70
[2017-12-01] MEDS: DIGOXIN 0.125 MG TABLET PO SCH (12:53)
--- NOTE | 2017-12-01 18:47 | NUR ---
DISCHARGE NOTE PT DISCHARGED HOME. EXIT CARE AND PT EDUCATION PERFORMED AT BEDSIDE. PT VERBALIZED UNDERSTANDING. BELONGINGS CHECKED AND ACCOUNTED FOR. BELONGINGS SHEET AND DC INSTRUCTIONS SIGNED, COPIED AND PLACED IN CHART. IV ACCESS REMOVED. PT WAS GIVEN A TAXI VOUCHER FOR RIDE HOME. PT LEFT HOSPITAL IN PRIVATE TAXI.
== END 2017-12-01 17:10 | disposition home or self-care (01) | DRG 310 ==
LOC: ER 05:53 → TELE1 08:24 → MEDSG1 12-01 10:18
PROVIDERS: ADMIT Internal Medicine; ATTEND Internal Medicine
DX: I48.0 Paroxysmal atrial fibrillation (principal); E78.5 Hyperlipidemia, unspecified; I10 Essential (primary) hypertension; Z95.0 Presence of cardiac pacemaker; Z79.01 Long term (current) use of anticoagulants; Z86.73 Personal history of transient ischemic attack (TIA), and cerebral infarction without residual deficits; Z88.2 Allergy status to sulfonamides; Z79.899 Other long term (current) drug therapy; Z96.649 Presence of unspecified artificial hip joint; F17.200 Nicotine dependence, unspecified, uncomplicated; H26.9 Unspecified cataract
CPT/HCPCS: 36415; 71045-TC; 76700-TC; 80048-TC; 80053-TC; 80061-TC; 80076-TC; 80162-TC; 82306; 83735-TC; 84100-TC; 84439-TC; 84443-TC; 84484-TC; 85025-TC; 85730-TC; 87081-TC; 93307-TC; A4606; C9113; J3475; Z7610

== ENCOUNTER 2017-12-02 19:44 | Inpatient (IN) | payer MEDICARE, OTHER ==
[2017-12-02] VITALS: BP 106/81
[~2017-12-02] VITALS: Ht 175.3 cm; Wt 93.4 kg
[~2017-12-02 19:44] MED LIST changes: -GABA-534 PO; -OXYC-128 PO
[2017-12-02 20:22] LABS: BASOPHILS # (AUTO) 0.1 /CMM (0.0-0.2); BASOPHILS % (AUTO) 1.1 % (0.0-2.0); EOSINOPHILS # (AUTO) 0.1 /CMM (0.0-0.7); EOSINOPHILS % (AUTO) 1.3 % (0.0-6.0); HEMATOCRIT 46 % (39-51); HEMOGLOBIN 16.1 g/dL (13.5-17.5); LYMPHOCYTES # (AUTO) 1.6 /CMM (0.8-4.8); LYMPHOCYTES % (AUTO) 15.5 % (20.0-44.0); MEAN CORPUSCULAR HEMOGLOBIN 32 PG (26.0-33.0); MEAN CORPUSCULAR HGB CONC 35 g/dl (31.0-36.0); MEAN CORPUSCULAR VOLUME 92 fL (80-96); MONOCYTES # (AUTO) 0.6 /CMM (0.1-1.30); MONOCYTES % (AUTO) 5.6 % (2.0-12.0); NEUTROPHILS # (AUTO) 8.1 /CMM (1.8-8.9); NEUTROPHILS % (AUTO) 76.5 % (43.0-81.0); PLATELET COUNT (AUTO) 229 /CMM (150-450); RDW COEFFICIENT OF VARIATION 18.6 (11.5-15.0); WHITE BLOOD COUNT (AUTO) 10.5 K/uL (4.3-11.0)
[2017-12-02] MEDS ORDERED: IV NS 0.9% 500 ML BAG IV ONE (20:30)
[2017-12-02 20:34] LABS: CALCIUM, SERUM 9.1 mg/dL (8.5-10.1); CARBON DIOXIDE 26 mmol/L (21-32); CHLORIDE 106 mmol/L (98-107); CREATININE 1.4 mg/dL (0.6-1.3); GLUCOSE 93 mg/dL (74-106); POTASSIUM 4.4 mmol/L (3.5-5.1); SODIUM SERUM 140 mmol/L (136-145); UREA NITROGEN, BLOOD 22 mg/dL (7-18)
[2017-12-02 20:36] LABS: INR 1.1 (0.85-1.15)
[2017-12-02 20:43] LABS: TROPONIN I < 0.017 ng/mL (0.00-0.056)
[2017-12-02] MEDS ORDERED: AMIODARONE 150 MG/3 ML VIAL IV ONE ×3 (21:19→21:30)
[2017-12-02] MEDS ORDERED: AMIODARONE 900 MG in IV D5W 482 ML IV PRN (21:30)
[2017-12-02 22:00] VITALS: BP 117/86
[2017-12-02] MEDS ORDERED: ATORVASTATIN 40 MG TABLET PO SCH (22:00)
[2017-12-02] MEDS ORDERED: HYDROCODONE/APAP 5/325MG 1 EACH TABLET PO PRN (22:30)
[2017-12-02] MEDS ORDERED: MAG HYDROX/AL HYDROX/SIMETH 30 ML UDC PO PRN (22:30)
[2017-12-02] MEDS ORDERED: ZOLPIDEM TARTRATE 5 MG TABLET PO PRN (22:30)
[2017-12-02] MEDS ORDERED: ONDANSETRON HCL/PF 4 MG/2 ML VIAL IVP PRN (22:30)
[2017-12-02] MEDS ORDERED: MORPHINE SULFATE INJ 2 MG/ML DISP.SYRIN IV PRN (22:30)
[2017-12-02] MEDS ORDERED: ACETAMINOPHEN 325 MG TABLET PO PRN (22:30)
[2017-12-02] MEDS ORDERED: MAGNESIUM HYDROXIDE 30 ML UDC PO PRN (22:30)
[2017-12-03] VITALS: BP 106/81
[2017-12-03 04:00] VITALS: BP 112/70
[2017-12-03 07:11] LABS: BASOPHILS % (AUTO) 0.4 % (0.0-2.0); EOSINOPHILS # (AUTO) 0.1 /CMM (0.0-0.7); EOSINOPHILS % (AUTO) 1.8 % (0.0-6.0); HEMATOCRIT 41 % (39-51); LYMPHOCYTES # (AUTO) 1.9 /CMM (0.8-4.8); LYMPHOCYTES % (AUTO) 23.8 % (20.0-44.0); MEAN CORPUSCULAR HEMOGLOBIN 32 PG (26.0-33.0); MEAN CORPUSCULAR HGB CONC 34 g/dl (31.0-36.0); MEAN CORPUSCULAR VOLUME 94 fL (80-96); MONOCYTES # (AUTO) 0.6 /CMM (0.1-1.30); MONOCYTES % (AUTO) 7.8 % (2.0-12.0); NEUTROPHILS # (AUTO) 5.3 /CMM (1.8-8.9); NEUTROPHILS % (AUTO) 66.2 % (43.0-81.0); PLATELET COUNT (AUTO) 206 /CMM (150-450); RED BLOOD CELL COUNT(AUTO) 4.39 MIL/uL (4.5-6.0); WHITE BLOOD COUNT (AUTO) 7.9 K/uL (4.3-11.0)
[2017-12-03 07:30] LABS: CALCIUM, SERUM 8.1 mg/dL (8.5-10.1); MAGNESIUM 1.9 mg/dL (1.8-2.4); POTASSIUM 4.1 mmol/L (3.5-5.1)
[2017-12-03] MEDS ORDERED: ZOLPIDEM TARTRATE 5 MG TABLET PO PRN (07:30)
[2017-12-03 08:00] VITALS: BP 113/67
[2017-12-03] MEDS ORDERED: MORPHINE SULFATE INJ 4 MG/ML DISP.SYRIN IV PRN (08:00)
[2017-12-03] MEDS ORDERED: PREGABALIN 100 MG CAPSULE PO SCH (09:00)
[2017-12-03] MEDS ORDERED: DIGOXIN 0.125 MG TABLET PO SCH ×2 (09:00→13:00)
[2017-12-03] MEDS ORDERED: APIXABAN 5 MG TABLET PO SCH (09:00)
[2017-12-03] MEDS ORDERED: METOPROLOL SUCCINATE 25 MG TAB.SR.24H PO SCH ×2 (09:00)
[2017-12-03] MEDS ORDERED: AMIODARONE HCL 200 MG TABLET PO SCH (10:00)
[2017-12-03 10:34] VITALS: BP 113/67
[2017-12-03] MEDS ORDERED: ATORVASTATIN 40 MG TABLET PO SCH (22:00)
== END 2017-12-03 11:25 | disposition left against medical advice (07) | DRG 308 ==
LOC: ER 19:45 → TELE-TD 22:27
PROVIDERS: ADMIT Nurse Practitioner Acute Care; ATTEND Nurse Practitioner Acute Care
DX: I48.91 Unspecified atrial fibrillation (principal); N17.0 Acute kidney failure with tubular necrosis; F14.20 Cocaine dependence, uncomplicated; E78.5 Hyperlipidemia, unspecified; I10 Essential (primary) hypertension; Z86.73 Personal history of transient ischemic attack (TIA), and cerebral infarction without residual deficits; Z88.2 Allergy status to sulfonamides; Z95.0 Presence of cardiac pacemaker; M19.90 Unspecified osteoarthritis, unspecified site; F17.210 Nicotine dependence, cigarettes, uncomplicated; G89.29 Other chronic pain; F17.200 Nicotine dependence, unspecified, uncomplicated; Z96.641 Presence of right artificial hip joint
CPT/HCPCS: 36415; 71045-TC; 80048-TC; 80061-TC; 83735-TC; 84100-TC; 84484-TC; 85025-TC; 85730-TC; 87081-TC; A4606; J0282; J7030; J7040; J7060; Z7610

== ENCOUNTER 2017-12-14 17:36 | Emergency (ER) | payer MEDICARE, OTHER ==
[~2017-12-14] VITALS: Ht 165.1 cm; Wt 90.7 kg
--- NOTE | 2017-12-14 17:41 | NUR ---
A/OX4, PT WALKED IN TO THER ER W/ C/O NECK PAIN AND HEADACHE SINCE YESTERDAY, BP 'S ON THE HIGH SIDE SINCE YESTERDAY ON 160'S SBP. PT DENIES CHEST PAIN OR SOB. NAD. PT ASSISTED TO ED BED 10. NAD RR EVEN AND UNLABORED. SKIN IS WARM AND NON DIAPHORETIC. PENDING ER MD EVALUATION.
--- NOTE | 2017-12-14 17:49 | NUR ---
AT BEDSIDE FOR EVALUATION.
[2017-12-14] MEDS ORDERED: ONDANSETRON 4 MG TAB.RAPDIS ONE (19:15)
[2017-12-14] MEDS ORDERED: HYDROCODONE/APAP 10/325MG 1 EA TABLET ONE (19:15)
[2017-12-14 19:23] VITALS: BP 135/80
--- NOTE | 2017-12-14 19:23 | NUR ---
Patient discharged to home in stable condition. Written and verbal after care instructions given. Patient verbalizes understanding of instruction.
[2017-12-14] MEDS ORDERED: HYDROCODONE/APAP 10/325MG 1 EA TABLET PO ONE (19:30)
[2017-12-14] MEDS ORDERED: ONDANSETRON 4 MG TAB.RAPDIS SL ONE (19:30)
== END 2017-12-14 20:04 | disposition home or self-care (01) ==
LOC: ER 17:38
DX: R51 Headache (principal); I10 Essential (primary) hypertension; F17.200 Nicotine dependence, unspecified, uncomplicated; G89.29 Other chronic pain; Z79.01 Long term (current) use of anticoagulants; Z86.73 Personal history of transient ischemic attack (TIA), and cerebral infarction without residual deficits; Z88.2 Allergy status to sulfonamides; Z95.0 Presence of cardiac pacemaker
CPT/HCPCS: 70450-TC; A4606; Q0162; Z7610

== ENCOUNTER 2017-12-15 14:30 | Emergency (ER) | payer MEDICARE, OTHER ==
[~2017-12-15] VITALS: Ht 170.2 cm; Wt 74.8 kg
[2017-12-15 14:42] VITALS: BP 137/66
[2017-12-15] MEDS ORDERED: ONDANSETRON 4 MG TAB.RAPDIS ONE (15:09)
[2017-12-15] MEDS ORDERED: HYDROCODONE/APAP 5/325MG 1 EACH TABLET ONE (15:09)
[2017-12-15] MEDS ORDERED: ONDANSETRON 4 MG TAB.RAPDIS PO ONE (15:30)
[2017-12-15] MEDS ORDERED: HYDROCODONE/APAP 5/325MG 1 EACH TABLET PO ONE (15:30)
== END 2017-12-15 15:12 | disposition home or self-care (01) ==
LOC: ER 14:32
DX: R51 Headache (principal); I10 Essential (primary) hypertension; F17.200 Nicotine dependence, unspecified, uncomplicated; Z86.73 Personal history of transient ischemic attack (TIA), and cerebral infarction without residual deficits; Z95.0 Presence of cardiac pacemaker; Z88.2 Allergy status to sulfonamides; Z98.890 Other specified postprocedural states; Z79.01 Long term (current) use of anticoagulants
CPT/HCPCS: A4606; Q0162; Z7610

== ENCOUNTER 2024-09-04 19:16 | Emergency (ER) | payer MEDICARE, OTHER ==
[~2024-09-04] VITALS: Ht 170.2 cm; Wt 102.1 kg
[~2024-09-04 19:16] MED LIST changes: -METO-356 PO; +METO25TA4 PO
[2024-09-04] MEDS ORDERED: hydrALAZINE HCL IV 20 MG VIAL ONE (21:28)
[2024-09-04 22:10] LABS: BASOPHILS # (AUTO) 0.1 K/uL (0.0-0.2); EOSINOPHILS # (AUTO) 0.2 K/uL (0.0-0.7); EOSINOPHILS % (AUTO) 1.9 % (0.0-6.0); HEMATOCRIT 37 % (39-51); HEMOGLOBIN 12.5 g/dL (13.5-17.5); LYMPHOCYTES # (AUTO) 1.3 K/uL (0.8-4.8); LYMPHOCYTES % (AUTO) 15.5 % (20.0-44.0); MEAN CORPUSCULAR HEMOGLOBIN 34 PG (26.0-33.0); MEAN CORPUSCULAR HGB CONC 34 g/dl (31.0-36.0); MEAN CORPUSCULAR VOLUME 99 fL (80-96); MONOCYTES # (AUTO) 0.5 K/uL (0.1-1.30); MONOCYTES % (AUTO) 6.1 % (2.0-12.0); NEUTROPHILS # (AUTO) 6.5 K/uL (1.8-8.9); NEUTROPHILS % (AUTO) 75.5 % (43.0-81.0); PLATELET COUNT (AUTO) 295 K/uL (150-450); RED BLOOD CELL COUNT(AUTO) 3.71 MIL/uL (4.5-6.0); WHITE BLOOD COUNT (AUTO) 8.6 K/uL (4.3-11.0)
[2024-09-04] MEDS: hydrALAZINE HCL IV 20 MG VIAL IV ONE (22:10)
[2024-09-04 22:32] LABS: ALANINE AMINOTRANSFERASE 29 U/L (12-78); ALBUMIN 4.2 g/dL (3.4-5.0); ALKALINE PHOSPHATASE 65 U/L (46-116); ASPARTATE AMINOTRANSFERASE 22 U/L (15-37); BILIRUBIN,TOTAL 1.3 mg/dL (0.2-1.0); CALCIUM, SERUM 9.1 mg/dL (8.5-10.1); CREATININE 1.4 mg/dL (0.6-1.3); GLUCOSE 91 mg/dL (74-106); NT-PRO BNP 361 pg/mL (0-125); TOTAL PROTEIN, SERUM 7.2 g/dL (6.4-8.2); UREA NITROGEN, BLOOD 23 mg/dL (7-18)
[2024-09-04 22:38] LABS: CARBON DIOXIDE 31 mmol/L (21-32); CHLORIDE 105 mmol/L (98-107); POTASSIUM 4.6 mmol/L (3.5-5.1); SODIUM SERUM 139 mmol/L (136-145)
[2024-09-04] MEDS: FUROSEMIDE 40 MG TABLET PO ONE (23:30)
[2024-09-04] MEDS ORDERED: FURO-145 PO (23:37)
[2024-09-04 23:38] LABS: APPEARANCE,URINE CLEAR (CLEAR); BILIRUBIN,URINE NEGATIVE (NEGATIVE); BLOOD, URINE NEGATIVE Ery/uL (NEGATIVE); COLOR,URINE YELLOW (YELLOW); KETONES,URINE NEGATIVE (NEGATIVE); LEUKOCYTE ESTERASE ,URINE TRACE (NEGATIVE); NITRITE, URINE NEGATIVE (NEGATIVE); PROTEIN,URINE TRACE mg/dl (NEGATIVE); UGLUCOSE NEGATIVE (NEGATIVE); UROBILINOGEN,URINE 0.2 EU/dL (0.2)
[2024-09-04] MEDS ORDERED: FUROSEMIDE 40 MG TABLET ONE (23:38)
[2024-09-04 23:41] LABS: ADD URINE CULTURE NO; BACTERIA,URINE None seen /HPF (None Seen); MUCUS,URINE Few /LPF (None Seen); RBC,URINE 0-2 /HPF (0-2); SQUAMOUS EPITHELIAL CELL,UR None Seen /HPF (None Seen)
[2024-09-04 23:53] VITALS: BP 146/81; TEMP 98.2; O2SAT 98
== END 2024-09-04 23:54 | disposition home or self-care (01) ==
LOC: ER 19:24
DX: I11.0 Hypertensive heart disease with heart failure (principal); I50.9 Heart failure, unspecified; F17.200 Nicotine dependence, unspecified, uncomplicated; G93.89 Other specified disorders of brain; Z79.01 Long term (current) use of anticoagulants; Z79.899 Other long term (current) drug therapy; Z88.2 Allergy status to sulfonamides; Z95.0 Presence of cardiac pacemaker; Z98.1 Arthrodesis status
CPT/HCPCS: 99285; 72125; 71045; 93005; 70450; 85025; 81001; 36415; 80053; 84484; 83880; J0360